=== PATIENT | female | born 1990 | race American Indian/Alaskan Native ===

== ENCOUNTER 2020-01-02 12:00 | Emergency (ER) | payer BC, MEDICAID ==
[2020-01-02 12:05] VITALS: BP 134/70
[2020-01-02 12:56] LABS: Basophils % (Auto) 0.3 % (0.0-1.8); Eosinophils # (Auto) 0.1 K/mm3 (0.0-0.4); Eosinophils % (Auto) 1.1 % (0.0-4.3); Hematocrit 32.3 % (30.3-42.9); Hemoglobin 11.1 gm/dl (10.1-14.3); Lymphocytes # (Auto) 1.5 K/mm3 (1.2-5.4); Lymphocytes % (Auto) 26.6 % (13.4-35.0); Mean Corpuscular HGB Conc 34 % (30-34); Mean Corpuscular Volume 87 fl (79-97); Monocytes # (Auto) 0.6 K/mm3 (0.0-0.8); Monocytes % (Auto) 11.5 % (0.0-7.3); Platelet Count 170 K/mm3 (140-440); Red Blood Count 3.71 M/mm3 (3.65-5.03); Red Cell Distribution Width 12.9 % (13.2-15.2)
[2020-01-02 12:58] LABS: Bilirubin,Urine NEG (Negative); Blood,Urine NEG (Negative); Color,Urine Yellow (Yellow); Mucus,Urine FEW /HPF; Protein,Urine <15 mg/dL mg/dL (Negative)
--- NOTE | 2020-01-02 13:14 | Vascular Lab Report ---
DUPLEX DOPPLER LOWER EXTREMITY VEINS, RIGHT INDICATION: right leg pain. TECHNIQUE: Duplex doppler imaging was performed through the veins of the right lower extremity using venous comp ression and other maneuvers. COMPARISON: No relevant prior imaging study available. FINDINGS: Common Femoral vein: Negative. Superficial Femoral vein: Negative. Popliteal vein: Negative. Calf veins: Negative. Additional findings: None. IMPRESSION: 1. No sonographic evidence for DVT in the right lower extremity. Signer Name: Daren Liz MD Signed: 01/02/2020 1:10 PM Workstation Name: [id number]
--- NOTE | 2020-01-02 13:15 | Emergency Department Report ---
ED Lower Extremity HPI - General Chief Complaint: Extremity Injury, Lower Stated Complaint: CALF PAIN Time Seen by Provider: 01/02/20 12:07 Source: patient Mode of arrival: Ambulatory Limitations: No Limitations - History of Present Illness Initial Comments: This is a 29-year-old female nontoxic, well nourished in appearance, no acute signs of distress presents to the ED with c/o of right calf pain x1 day. Patient stated that is she has been walking and developed instant pain. Patient denies any trauma. Patient is but denies any pelvic, abdominal, or vaginal bleeding. Patient denies any numbness, tingling, fever, chills, nausea, vomiting, chest pain, shortness of breath, headache, stiff neck. Patient denies any joint swelling or joint redness. Patient denies decreased range of motion. Patient denies any allergies or significant past medical history. MD Complaint: other (right calf pain) -: days(s) (1) Injury: Leg: Right Place: work Severity: mild Severity scale (0 -10): 8 Improves With: immobilization Worsens With: weight bearing, palpation Associated Symptoms: ambulatory. denies: snap/pop sensation, swelling, numbness, tingling, unable to bear weight, able to partially bear weight - Related Data Allergies Allergy/AdvReac Type Severity Reaction Status Date / Time No Known Allergies Allergy Verified 01/02/20 12:01 ED Review of Systems ROS: Stated complaint: CALF PAIN Other details as noted in HPI Constitutional: denies: chills, fever Eyes: denies: eye pain, eye discharge, vision change ENT: denies: ear pain, throat pain Respiratory: denies: cough, shortness of breath, wheezing Cardiovascular: denies: chest pain, palpitations Endocrine: no symptoms reported Gastrointestinal: denies: abdominal pain, nausea, diarrhea Genitourinary: denies: urgency, dysuria, discharge Musculoskeletal: denies: back pain, joint swelling, arthralgia Skin: denies: rash, lesions Neurological: denies: headache, weakness, paresthesias Psychiatric: denies: anxiety, depression Hematological/Lymphatic: denies: easy bleeding, easy bruising ED Past Medical Hx - Past Medical History Hx Hypertension: No Hx Diabetes: No Hx Deep Vein Thrombosis: No Hx Renal Disease: No Hx Sickle Cell Disease: No Hx Seizures: No Hx Asthma: No Hx HIV: No - Surgical History Additional Surgical History: C SECTION - Social History Smoking Status: Never Smoker Substance Use Type: None ED Physical Exam - General Limitations: No Limitations General appearance: alert, in no apparent distress - Head Head exam: Present: atraumatic, normocephalic - Neck Neck exam: Present: normal inspection, full ROM - Extremities Exam Extremities exam: Present: normal inspection, full ROM, tenderness, normal capillary refill, calf tenderness. Absent: joint swelling - Back Exam Back exam: Present: normal inspection, full ROM - Neurological Exam Neurological exam: Present: alert, oriented X3, normal gait - Psychiatric Psychiatric exam: Present: normal affect, normal mood - Skin Skin exam: Present: warm, dry, intact, normal color. Absent: rash ED Course Vital Signs 01/02/20 01/02/20 12:03 12:09 Temperature 97.8 F Pulse Rate 110 H Respiratory 18 18 Rate Blood Pressure 134/70 O2 Sat by Pulse 99 Oximetry - Reevaluation(s) Reevaluation #1: 01/02/20 13:16 Patient is speaking in full sentences with no signs of distress noted. ED Lower Extremity MDM - Lab Data Result diagrams: 01/02/20 12:29 01/02/20 12:29 - Medical Decision Making This is a 29-year-old female that presents with right leg pain. Patient is stable and was examined by me and Dr. Cummings. Labs are unremarkable. UA is unremarkable. Doppler ultrasound negative for DVT. Patient was instructed to get a repeat Doppler test in 1 week and was given outpatient prescription for this. Patient was referred to Follow-up with a primary care doctor in 3-5 days or if symptoms worsen and continue return to emergency room as soon as possible. At time of discharge, the patient does not seem toxic or ill in appearance. No acute signs of distress noted. Patient agrees to discharge treatment plan of care. No further questions noted by the patient. Critical care attestation.: If time is entered above; I have spent that time in minutes in the direct care of this critically ill patient, excluding procedure time. ED Disposition Clinical Impression: Right leg pain Disposition: DC-01 TO HOME OR SELFCARE Is pt being admited?: No Does the pt Need Aspirin: No Condition: Stable Additional Instructions: Follow-up with a primary care doctor in 3-5 days or if symptoms worsen and continue return to emergency room as soon as possible. Return in 1 week for a Doppler test repeat. Referrals: PRIMARY CAREMD [Primary Care Provider] - 3-5 Days ARTEMIO BARTHOLOMEW MD [Staff Physician] - 3-[address] [facility] [Outside] - 3-5 Days Forms: Work/School Release Form(ED)
[2020-01-02 13:33] LABS: BUN/Creatinine Ratio 8; Blood Urea Nitrogen 3 mg/dL (7-17); Calcium 8.9 mg/dL (8.4-10.2); Hemolysis Index 3
== END 2020-01-02 13:50 | disposition home or self-care (01) ==
LOC: ED 12:00
DX: M79.661 Pain in right lower leg (principal); Z98.890 Other specified postprocedural states
CPT/HCPCS: 36415; 80048; 81001; 82550; 85025

== ENCOUNTER 2020-02-07 10:55 | Outpatient (CLI) | payer BC, MEDICAID ==
[2020-02-07 11:35] VITALS: BP 96/52
[2020-02-07] MEDS ORDERED: LACTATED RINGERS 1,000 ML IV SCH (12:00)
[2020-02-07] MEDS ORDERED: ACETAMINOPHEN 500 MG TAB PO ONE (12:37)
[2020-02-07 12:40] LABS: Bilirubin,Urine NEG (Negative); Blood,Urine SM (Negative); Color,Urine Yellow (Yellow); Protein,Urine <15 mg/dL mg/dL (Negative)
[2020-02-07 12:58] LABS: RBC,Urine < 1.0 /HPF (0.0-6.0); WBC,Urine < 1.0 /HPF (0.0-6.0)
--- NOTE | 2020-02-07 14:10 | Ultrasound Report ---
ULTRASOUND OBSTETRIC LIMITED ULTRASOUND BIOPHYSICAL PROFILE INDICATION / CLINICAL INFORMATION: labor. COMPARISON: None available. FINDINGS: BREATHING MOVEMENT = 2 GROSS BODY MOVEMENT = 2 TONE = 2 QUALITATIVE AMNIOTIC FLUID VOLUME = 2 TOTAL BIOPHYSICAL SCORE = 8/8 AMNIOTIC FLUID INDEX (cm) = 20.1 PRESENTATION: Breech. HEART RATE (beats per minute): 129 ADDITIONAL FINDINGS: None. IMPRESSION: 1. Biophysical Score = 8/8 2. Normal amniotic fluid index of 20.1 cm. Signer Name: Daren Liz MD Signed: 02/07/2020 2:06 PM Workstation Name: [id number]
--- NOTE | 2020-02-07 14:40 | Ultrasound Report ---
ULTRASOUND OBSTETRIC LIMITED INDICATION / CLINICAL INFORMATION: ptl. labor TECHNIQUE: Transabdominal ultrasound imaging. COMPARISON: None available. FINDINGS: HEART RATE (beats per minute): 129 AMNIOTIC FLUID INDEX (cm) = 20.1 PRESENTATION: Breech. ADDITIONAL FINDINGS: None. IMPRESSION: Breech presentation. FRANCESCO = 20.1. Signer Name: Raz Dunham Jr, MD Signed: 02/07/2020 2:35 PM Workstation Name: [id number]
[2020-02-07] MEDS ORDERED: cefTRIAXone/NS 1 GM/50 ML 1 GM/50 ML BAG IV SCH (15:00)
== END 2020-02-07 16:16 | disposition home or self-care (01) ==
LOC: TRG 10:55
PROVIDERS: ATTEND Obstetrics & Gynecology
DX: O26.893 Other specified pregnancy related conditions, third trimester (principal); R51 Headache; O99.89 Other specified diseases and conditions complicating pregnancy, childbirth and the puerperium; H53.8 Other visual disturbances; O32.1XX0 Maternal care for breech presentation, not applicable or unspecified; O47.03 False labor before 37 completed weeks of gestation, third trimester; Z3A.34 34 weeks gestation of pregnancy
CPT/HCPCS: 76815; 76819; 81001; 96361; 96365; 96366; J0696; J7120; 96360

== ENCOUNTER 2020-11-06 16:36 | Emergency (ER) | payer BC, MEDICAID ==
[2020-11-06 16:48] VITALS: BP 130/72
--- NOTE | 2020-11-06 16:53 | Emergency Department Report ---
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 She complains of a headache. She reports is been going on for a while. She does admit to a dry cough. Last menstrual period July 2020. She reports she has IUD in. Last delivered a baby in February. She does admit to irregular menstrual cycles. Patient does report having a history of Covid x2. Onset/Timin -: week(s) Timing: intermittent Description: lightheadedness History of Same: No History of Trauma: No Severity: moderate Improves With: nothing Worsens With: nothing Associated Symptoms: cough - Related Data Home Medications Medication Instructions Recorded Confirmed Last Taken No Known Home Medications [No 02/07/20 09/16/20 Unknown Reported Home Medications] Allergies Allergy/AdvReac Type Severity Reaction Status Date / Time No Known Allergies Allergy Verified 02/07/20 11:37 ED Review of Systems ROS: Stated complaint: MEDICAL CLEARENCE Other details as noted in HPI Comment: All other systems reviewed and negative ED Past Medical Hx - Past Medical History Previous Medical History?: Yes Hx Hypertension: No Hx Diabetes: No Hx Deep Vein Thrombosis: No Hx Renal Disease: No Hx Sickle Cell Disease: No Hx Seizures: No Hx Asthma: Yes ( CHILD ONLY) Hx HIV: No - Surgical History Past Surgical History?: Yes Additional Surgical History: C SECTION X 2 - Social History Smoking Status: Never Smoker Substance Use Type: Alcohol - Medications Home Medications: Home Medications Medication Instructions Recorded Confirmed Last Taken Type No Known Home Medications [No 02/07/20 09/16/20 Unknown History Reported Home Medications] ED Physical Exam - General Limitations: No Limitations General appearance: alert, in no apparent distress - Head Head exam: Present: atraumatic, normocephalic - Eye Eye exam: Present: normal appearance - ENT ENT exam: Present: mucous membranes moist - Neck Neck exam: Present: full ROM - Respiratory Respiratory exam: Absent: accessory muscle use - Cardiovascular Cardiovascular Exam: Present: regular rate, normal rhythm. Absent: systolic murmur, diastolic murmur, rubs, gallop - GI/Abdominal GI/Abdominal exam: Present: soft. Absent: distended, tenderness - Neurological Exam Neurological exam: Present: alert, oriented X3 - Psychiatric Psychiatric exam: Present: normal affect, normal mood - Skin Skin exam: Present: warm, dry, intact, normal color. 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 She complains of a headache. She reports is been going on for a while. She does admit to a dry cough. Last menstrual period July 2020. She reports she has IUD in. Last delivered a baby in February. She does admit to irregular menstrual cycles. Patient does report having a history of Covid x2. All labs are stable. X-ray is within normal limits. I recommend increase your fluid intake try multiple vitamin and vitamin C D and zinc to your diet. Try to increase your sleeping resting. Take a walk for 20 minutes daily. Critical care attestation.: If time is entered above; I have spent that time in minutes in the direct care of this critically ill patient, excluding procedure time. ED Disposition Clinical Impression: Feeling stressed out Disposition: DC-01 TO HOME OR SELFCARE Is pt being admited?: No Does the pt Need Aspirin: No Condition: Stable Additional Instructions: Recommend multivitamin with extra vitamin C vitamin D and zinc. Increase your fluid intake increase your sleep intake. Take a walk every day at least 20 minutes Referrals: SONIA PEACOCK FNP [Referring] - 3-5 Days
[2020-11-06 17:03] LABS: HCG Qualitative,Urine Negative (Negative)
[2020-11-06 17:05] LABS: Bilirubin,Urine NEG (Negative); Blood,Urine NEG (Negative); Color,Urine Yellow (Yellow); Protein,Urine <15 mg/dL mg/dL (Negative); WBC,Urine < 1.0 /HPF (0.0-6.0)
--- NOTE | 2020-11-06 17:22 | XRay Report ---
CHEST 2 VIEWS INDICATION / CLINICAL INFORMATION: Shortness of breath, cough and rales. COMPARISON: None available. FINDINGS: SUPPORT DEVICES: None. HEART / MEDIASTINUM: The heart size and pulmonary vasculature are normal. LUNGS / PLEURA: No significant pulmonary or pleural abnormality. No pneumothorax. ADDITIONAL FINDINGS: No significant additional findings. IMPRESSION: No acute findings. Signer Name: Sb Nguyen MD Signed: 11/06/2020 5:18 PM Workstation Name: [id number]
[2020-11-06 17:40] LABS: Hematocrit 41.8 % (30.3-42.9); Hemoglobin 14.6 gm/dl (10.1-14.3); Mean Corpuscular HGB Conc 35 % (30-34); Mean Corpuscular Volume 91 fl (79-97); Platelet Count 201 K/mm3 (140-440); Red Blood Count 4.58 M/mm3 (3.65-5.03); Red Cell Distribution Width 13.1 % (13.2-15.2)
[2020-11-06 17:46] LABS: Alanine Aminotransferase 10 units/L (7-56); Albumin 4.3 g/dL (3.9-5); Blood Urea Nitrogen 8 mg/dL (7-17); Calcium 9.4 mg/dL (8.4-10.2); Hemolysis Index 7
[2020-11-06 17:51] LABS: BUN/Creatinine Ratio 13
[2020-11-06 19:42] LABS: Total Cells Counted 100
[2020-11-06 19:43] LABS: RBC Morphology Normal
== END 2020-11-06 18:00 | disposition home or self-care (01) ==
LOC: ED 16:36
DX: F43.9 Reaction to severe stress, unspecified (principal)
CPT/HCPCS: 36415; 71046; 80053; 81001; 81025; 85007; 85025; 93005; 99283

== ENCOUNTER 2022-08-24 10:58 | Emergency (ER) | payer BC, MEDICAID ==
[2022-08-24 11:07] VITALS: BP 126/85
[2022-08-24 12:14] LABS: Hemoglobin 14.2 gm/dl (10.1-14.3); Mean Corpuscular HGB Conc 35 % (30-34); Mean Corpuscular Volume 92 fl (79-97); Platelet Count 189 K/mm3 (140-440); Red Blood Count 4.45 M/mm3 (3.65-5.03); Red Cell Distribution Width 12.7 % (13.2-15.2)
[2022-08-24 12:35] LABS: Alanine Aminotransferase 11 units/L (7-56); Albumin 4.2 g/dL (3.9-5); Blood Urea Nitrogen 8 mg/dL (7-17); Calcium 8.7 mg/dL (8.4-10.2); Hemolysis Index 4
[2022-08-24 12:41] LABS: BUN/Creatinine Ratio 16
--- NOTE | 2022-08-24 13:17 | Emergency Department Report ---
ED General Adult HPI - General Chief complaint: Medical Clearance Stated complaint: ABNORMAL LABS Time Seen by Provider: 08/24/22 11:09 Source: patient Mode of arrival: Ambulatory Limitations: No Limitations - History of Present Illness Initial comments: 32 yo black female with no pmh presents to ed for evaluation of intermittent dizziness and elevated hr. She states that for the past few months, she has been having intermittent tachycardia for which she has seen her pcp and was told that it was related to anxiety. She states that it is usually associated with anxiety. She states that she is scheduled to see cardiology in a few weeks but is requesting a check of her tsh levels. She states that she is not dizzy or having palpations at this time but just wants to check her labs. She denies cp, sob, palpation, n/v, dizziness and diaphoresis at this time. MD Complaint: check labs Severity scale (0 -10): 0 Associated Symptoms: denies: confusion, chest pain, cough, diaphoresis, fever/chills, headaches, loss of appetite, malaise, nausea/vomiting, rash, seizure, shortness of breath, syncope, weakness Treatments Prior to Arrival: none - Related Data Home Medications Medication Instructions Recorded Confirmed Last Taken No Known Home Medications [No 02/07/20 09/16/20 Unknown Reported Home Medications] Allergies Allergy/AdvReac Type Severity Reaction Status Date / Time No Known Allergies Allergy Verified 08/24/22 11:02 ED Review of Systems ROS: Stated complaint: ABNORMAL LABS Other details as noted in HPI Comment: All other systems reviewed and negative Constitutional: denies: chills, fever Respiratory: denies: shortness of breath Cardiovascular: denies: chest pain, palpitations Gastrointestinal: denies: abdominal pain, nausea, vomiting Musculoskeletal: denies: back pain Neurological: denies: headache, weakness Psychiatric: denies: anxiety ED Past Medical Hx - Past Medical History Hx Hypertension: No Hx Diabetes: No Hx Deep Vein Thrombosis: No Hx Renal Disease: No Hx Sickle Cell Disease: No Hx Seizures: No Hx Asthma: Yes ( CHILD ONLY) Hx HIV: No - Surgical History Additional Surgical History: C SECTION X 2 - Social History Smoking Status: Never Smoker Substance Use Type: Alcohol - Medications Home Medications: Home Medications Medication Instructions Recorded Confirmed Last Taken Type No Known Home Medications [No 02/07/20 09/16/20 Unknown History Reported Home Medications] ED Physical Exam - General Limitations: No Limitations General appearance: alert, in no apparent distress - Head Head exam: Present: atraumatic, normocephalic - Eye Eye exam: Present: normal appearance. Absent: conjunctival injection - Neck Neck exam: Present: normal inspection. Absent: tenderness, lymphadenopathy - Respiratory Respiratory exam: Present: normal lung sounds bilaterally. Absent: respiratory distress, wheezes, chest wall tenderness - Cardiovascular Cardiovascular Exam: Present: regular rate, normal heart sounds - GI/Abdominal GI/Abdominal exam: Present: soft, normal bowel sounds. Absent: distended, tenderness, guarding, rebound - Extremities Exam Extremities exam: Present: normal inspection, normal capillary refill - Back Exam Back exam: Present: normal inspection - Neurological Exam Neurological exam: Present: oriented X3 - Psychiatric Psychiatric exam: Present: normal affect, normal mood - Skin Skin exam: Present: warm, dry, intact, normal color ED Course Vital Signs 08/24/22 11:06 Temperature 98 F Pulse Rate 77 Respiratory 18 Rate Blood Pressure 126/85 [Left] O2 Sat by Pulse 98 Oximetry ED Medical Decision Making - Lab Data Result diagrams: 08/24/22 11:21 08/24/22 11:21 - Medical Decision Making 32 yo black female with no pmh presents to ed for evaluation of intermittent dizziness and elevated hr. She states that for the past few months, she has been having intermittent tachycardia for which she has seen her pcp and was told that it was related to anxiety. She states that it is usually associated with anxiety. She states that she is scheduled to see cardiology in a few weeks but is requesting a check of her tsh levels. She states that she is not dizzy or having palpations at this time but just wants to check her labs. She denies cp, sob, palpation, n/v, dizziness and diaphoresis at this time. Physical exam and workup unremarkable. Patient will be d/stephenie home to follow up with cardiology as planned and return to ed as needed. She verbalized understanding of and agreement with plan of care. Critical care attestation.: If time is entered above; I have spent that time in minutes in the direct care of this critically ill patient, excluding procedure time. ED Disposition Clinical Impression: Dizziness Disposition: 01 HOME / SELF CARE / HOMELESS Is pt being admited?: No Does the pt Need Aspirin: No Condition: Stable Instructions: Dizziness, [id number] Additional Instructions: Follow up with cardiology as planned. Referrals: KRISTOPHER RASCON MD [Staff Physician] - 3-5 Days Time of Disposition: 13:16
== END 2022-08-24 13:45 | disposition home or self-care (01) ==
LOC: ED 10:58
DX: R42 Dizziness and giddiness (principal); J45.909 Unspecified asthma, uncomplicated
CPT/HCPCS: 36415; 80053; 84443; 85027; 99283